=== PATIENT | female | born 1985 | race Caucasian/White ===

== ENCOUNTER 2016-08-20 23:20 | Observation (INO) | payer OTHER ==
[~2016-08-20] VITALS: Ht 160 cm; Wt 56.0 kg
[2016-08-20 23:55] LABS: MCH 30.7 PG (29.0-34.0); MCHC 33.6 G/DL (30.0-36.0); MCV 91.3 FL (83-99); MEAN PLAT.VOLUME 10.8 uM^3 (9.5-12.4); PLATELET COUNT 241 K/uL (156-360); RBC DIS.WIDTH-CV 13.2 % (11.8-14.6); RBC DIS.WIDTH-SD 43.5 % (39-53); RED BLOOD COUNT 4.82 M/uL (3.80-5.20); WHITE BLOOD COUNT 17.9 K/uL (4.1-10.2)
[2016-08-21 00:07] LABS: CHLORIDE 105 mEq/L (99-109); POTASSIUM 3.9 mEq/L (3.7-5.4); SODIUM 142 mEq/L (136-147)
[2016-08-21 00:09] LABS: GLUCOSE 97 mg/dL (70-99)
[2016-08-21 00:10] LABS: ANION GAP 11 MEQ/L (2-14)
[2016-08-21 00:14] LABS: GFR ESTIMATE (CALCULATED) > 59 mL/min/; UREA NITROGEN (BUN) 12 mg/dL (9-23)
[2016-08-21 00:44] LABS: ADD MIUA? YES; BILIRUBIN NEGATIVE; BLOOD NEGATIVE; COLOR YELLOW ((YELLOW)); GLUCOSE (STRIP) NEGATIVE; KETONES NEGATIVE; LEUKOCYTES NEGATIVE; NITRITE NEGATIVE; PROTEIN (STRIP) NEGATIVE; UROBILINOGEN 0.2 MG/DL (0.2-1.0)
[2016-08-21 01:04] LABS: PROTHROMBIN TIME 10.4 (9.2-11.2); PTT 28.7 (25-32)
[2016-08-21 01:12] LABS: BACTERIA 3+ /HPF; CASTS NONE SEEN /LPF; CRYSTALS PRESENT; EPITHELIAL CELLS NONE SEEN /HPF; MUCUS NONE SEEN /LPF; RED BLOOD CELLS NONE SEEN /HPF (0-5); UCUL ADDED? NO; WHITE BLOOD CELLS NONE SEEN /HPF (0-5)
[2016-08-21 01:13] LABS: AMORPHOUS URATES CRYSTALS 3+
[2016-08-21 05:26] VITALS: BP 103/59
[2016-08-21 05:52] LABS: HEMATOCRIT 42.6 % (36.0-46.0); MCH 31.1 PG (29.0-34.0); MCHC 33.3 G/DL (30.0-36.0); MCV 93.4 FL (83-99); MEAN PLAT.VOLUME 11.2 uM^3 (9.5-12.4); PLATELET COUNT 237 K/uL (156-360); RBC DIS.WIDTH-CV 13.1 % (11.8-14.6); RBC DIS.WIDTH-SD 44.6 % (39-53); RED BLOOD COUNT 4.56 M/uL (3.80-5.20); WHITE BLOOD COUNT 14.3 K/uL (4.1-10.2)
[2016-08-21 06:17] LABS: HDL CHOLESTEROL 41 MG/DL (Desirable>=50); LDL CHOLESTEROL 111 mg/dL (Desirable<100); NON-HDL CHOLESTEROL 128 mg/dL (Desirable<160); TOTAL CHOLESTEROL 169 mg/dL (Desirable<200); TRIGLYCERIDES 86 MG/DL (Normal: <150)
[2016-08-21 07:39] VITALS: BP 112/64
[2016-08-21 07:45] LABS: Estimated Average Glucose 105 mg/dL (70-123); HEMOGLOBIN A1c (GLYCOHEMOGLOB) 5.3 % HGB (Below 5.7)
[2016-08-21] MEDS ORDERED: KLONOPIN0.5 M1 PO (14:13)
[2016-08-21] MEDS ORDERED: FLEXERIL10 MG PO (14:14)
[2016-08-21] MEDS ORDERED: TRAMADOL HCL50 MG PO (14:15)
[2016-08-21 15:47] VITALS: BP 97/55
[2016-08-21 20:00] VITALS: BP 121/75
[2016-08-21 20:24] VITALS: BP 120/76
== END 2016-08-21 22:34 | disposition home or self-care (01) ==
LOC: EME 23:20 → 5WEST 08-21 04:00 → EDOF 08-21 04:00 → 5WEST 08-21 05:12
PROVIDERS: Emergency Medicine; Family Medicine
DX: R29.818 Other symptoms and signs involving the nervous system (principal); Z86.19 Personal history of other infectious and parasitic diseases; D72.829 Elevated white blood cell count, unspecified; M79.7 Fibromyalgia; Z82.49 Family history of ischemic heart disease and other diseases of the circulatory system; Z83.3 Family history of diabetes mellitus
CPT/HCPCS: 70450; 70551; 80048; 80061; 81003; 83036; 85027; 85610; 85730; 93880; 99281; 99285; G0378; J1885; J2060